=== PATIENT | female | born 1995 | race Caucasian/White ===

== ENCOUNTER → 2019-03-15 13:03 | Outpatient (BNVA) | payer MEDICAID, SELFPAY | PROVIDERS: Family Provider Family Medicine; PCP Family Medicine; Visit Provider Specialist | DX: G40.109 Localization-related (focal) (partial) symptomatic epilepsy and epileptic syndromes with simple partial seizures, not intractable, without status epilepticus (principal); F84.0 Autistic disorder; G80.9 Cerebral palsy, unspecified | CPT/HCPCS: 95972; 99214 ==

== ENCOUNTER → 2019-04-20 10:36 | Outpatient (BNVA) | payer MEDICAID, SELFPAY | PROVIDERS: Family Provider Family Medicine; PCP Family Medicine; Visit Provider Specialist | DX: G40.109 Localization-related (focal) (partial) symptomatic epilepsy and epileptic syndromes with simple partial seizures, not intractable, without status epilepticus (principal) | CPT/HCPCS: 95971; 99214 ==

== ENCOUNTER → 2019-05-11 13:00 | Outpatient (BNVA) | payer MEDICAID, SELFPAY | PROVIDERS: Family Provider Family Medicine; PCP Family Medicine; Visit Provider Specialist | DX: G40.109 Localization-related (focal) (partial) symptomatic epilepsy and epileptic syndromes with simple partial seizures, not intractable, without status epilepticus (principal) | CPT/HCPCS: 95972; 99213 ==

== ENCOUNTER → 2019-07-24 13:12 | Outpatient (BNVA) | payer MEDICAID, SELFPAY | PROVIDERS: Family Provider Family Medicine; PCP Family Medicine; Visit Provider Specialist | DX: G40.109 Localization-related (focal) (partial) symptomatic epilepsy and epileptic syndromes with simple partial seizures, not intractable, without status epilepticus (principal) | CPT/HCPCS: 99214 ==

== ENCOUNTER → 2019-10-05 12:36 | Outpatient (BNVA) | payer MEDICAID, SELFPAY | PROVIDERS: Family Provider Family Medicine; PCP Family Medicine; Visit Provider Specialist | DX: G40.109 Localization-related (focal) (partial) symptomatic epilepsy and epileptic syndromes with simple partial seizures, not intractable, without status epilepticus (principal); G93.41 Metabolic encephalopathy | CPT/HCPCS: 99214 ==

== ENCOUNTER 2019-10-05 13:53 | Outpatient (CLI) | payer MEDICAID, SELFPAY ==
[2019-10-05 14:37] LABS: Basophils % 0.2 %; Eosinophils # 0.1 10^3/uL (0.0-0.8); Eosinophils % 0.6 %; Hematocrit 41.4 % (37.0-47.0); Hemoglobin 12.9 g/dL (11.5-15.3); Lymphocytes # 2.1 10^3/uL (0.8-4.8); Lymphocytes % 23.8 %; Mean Corpuscular HGB Conc 31.2 g/dL (30.0-36.0); Mean Corpuscular Hemoglobin 29.3 pg (28.0-34.0); Mean Corpuscular Volume 93.9 fL (81-99); Mean Platelet Volume 10.4 fL (7.4-10.4); Monocytes # 0.8 10^3/uL (0.2-0.9); Monocytes % 9.1 %; Neutrophils # 5.82 10^3/uL (1.8-7.7); Neutrophils % 66.1 %; Nucleated Red Blood Cells % 0 %; Platelet Count 354 10^3/cmm (130-400); Red Blood Count 4.41 10^6/uL (4.1-5.3); Red Cell Distribution Width 14.9 % (12.1-15.1); White Blood Count 8.8 10^3/uL (4.0-10.0)
[2019-10-05 14:47] LABS: Add Urine Microscopic? YES; Bilirubin Urine Neg (NEGATIVE); Blood Urine 2+ (Negative); Glucose Urine UA Norm (Normal); Ketones Urine Negative (Negative); Leukocyte Esterase Urine 1+ (Negative); Nitrate Urine Negative (Negative); Protein Urine Neg (Negative); Urine Appearance SL Hazy (CLEAR); Urine Color Yellow (Yellow); Urobilinogen Urine Norm (Negative); pH Urine 5 (5-7)
[2019-10-05 14:58] LABS: Mucus Urine 2+
[2019-10-05 14:59] LABS: Bacteria Urine 2+; RBC Urine 0-4 /hpf (0-2)
[2019-10-05 15:00] LABS: Add Urine Culture? Yes
[2019-10-05 15:06] LABS: Alanine Aminotransferase 13 U/L (0-33); Albumin Level 4.3 g/dL (3.5-5.2); Alkaline Phosphatase 75 IU/L (35-105); Anion Gap 11.8 (5-19); Aspartate Amino Transferase 15 U/L (0-32); Blood Urea Nitrogen 10 mg/dL (6-20); Carbon Dioxide 25 mmol/L (22-29); Chloride 105 mmol/L (98-107); Globulin 2.9 g/dL (1.3-4.6); Glomerular Filtration Rate 89.7 mL/min (90-130); Glucose 111 mg/dL (65-115); Osmolality Calculated 283 mOsm/kg (285-295); Potassium 3.8 mmol/L (3.5-5.1); Sodium 138 mmol/L (136-145); Thyroid Stimulating Hormone 1.28 uIU/mL (0.27-4.20); Total Bilirubin 0.2 mg/dL (0.15-1.2); Total Protein 7.2 g/dL (6.6-8.7)
[2019-10-09 19:19] LABS: Lamotrigine (Lamictal) Level 15.2 mcg/mL (4.0-18.0)
== END 2019-10-05 13:54 | disposition home or self-care (01) ==
LOC: LAB 13:55
PROVIDERS: PCP Family Medicine; Visit Provider Specialist
DX: R41.0 Disorientation, unspecified (principal); R26.81 Unsteadiness on feet
CPT/HCPCS: 36415; 80053; 80175; 81001; 84443; 85025; 87077; 87086; 87186

== ENCOUNTER → 2019-11-27 14:55 | Outpatient (BNVA) | payer MEDICAID, SELFPAY | PROVIDERS: PCP Family Medicine; Visit Provider Specialist | DX: G40.109 Localization-related (focal) (partial) symptomatic epilepsy and epileptic syndromes with simple partial seizures, not intractable, without status epilepticus (principal) | CPT/HCPCS: 99214 ==

== ENCOUNTER → 2020-07-10 12:46 | Outpatient (BNVA) | payer MEDICAID, SELFPAY | PROVIDERS: PCP Family Medicine; Visit Provider Specialist | DX: G40.109 Localization-related (focal) (partial) symptomatic epilepsy and epileptic syndromes with simple partial seizures, not intractable, without status epilepticus (principal); F84.0 Autistic disorder; G80.9 Cerebral palsy, unspecified; Z96.82 Presence of neurostimulator | CPT/HCPCS: 95971; 99214 ==

== ENCOUNTER 2022-01-06 07:53 | Day surgery (SDC) | payer MEDICAID, SELFPAY ==
[2022-01-05 13:07] VITALS: BMI 43.9
[2022-01-06] VITALS (9 sets, daily range): BP systolic 94–146; BP diastolic 57–95; PULSE 61–83; RESP 16–18; TEMP 36.1–36.7; O2SAT 94–97
--- NOTE | 2022-01-06 | SC_ITS ---
WS: [id number] INTRAOPERATIVE TECHNIQUE: 2 Spot fluoroscopic images for intraoperative purposes. FLUOROSCOPY TIME: 3.6 seconds CLINICAL INFORMATION: vns generator COMPARISON: None. FINDINGS: Vagal nerve stimulator battery pack overlying the LEFT lateral chest. SC/C-arm FL Misc IMPRESSION: Images obtained for intraoperative purposes.
--- NOTE | 2022-01-06 | SCC_ITS ---
Procedure done: Vagal nerve stimulator generator exchange. 3.6 seconds of fluoroscopic guidance, for a cumulative dose of 0.92 mGy, was provided to Dr. Hernandez by the radiology department. C-arm images of the chest were saved for the patient's permanent record. [facility]
[2022-01-06 08:34] LABS: OR HCG Qualitative Urine Negative (Negative)
[2022-01-06] MEDS: sodium chloride 0.9% 1,000 ML 30 ML IV (08:38)
[2022-01-06 08:47] LABS: Bilirubin Urine Neg (Negative); Blood Urine Trace (Negative); Glucose Urine UA Norm (Normal); Ketones Urine Negative (Negative); Nitrate Urine Negative (Negative); Protein Urine Neg (Negative); Specific Gravity, Urine 1.025 (1.005-1.030); Urine Appearance Clear (CLEAR); Urine Color Yellow (Yellow); Urobilinogen Urine Norm (Negative); pH Urine 6 (5-7)
[2022-01-06 08:48] LABS: Add Urine Culture? No; Add Urine Microscopic? YES; Bacteria Urine 1+ /hpf; Leukocyte Esterase Urine 2+ (Negative); RBC Urine 0-4 /hpf (0-2); Squamous Epithelial Cell Urine 0-4 /hpf (0-5); WBC Urine 0-4 /hpf (0-5)
--- NOTE | 2022-01-06 08:53 | ANES.PREANE2 ---
Pre-Anesthetic Assessment Height/Weight: Height 1.57 m Weight 108.862 kg Temp Pulse Resp BP Pulse Ox O2 Del Method 97.9 F 83 18 146/95 96 01/06/22 08:45 01/06/22 08:45 01/06/22 08:45 01/06/22 08:45 01/06/22 08:45 01/06/22 08:45 Preop Diagnosis: VNS generator end of service Operation Date: 01/06/22 09:40 Proposed Procedures p VNS Generator Exchange 99706,G40.109(Not Applicable) - Ruel Hernandez MD Familial anesthetic complications: None Was Beta Jacque taken within 24 hours: N/A Was Clonidine taken within 24 hours: N/A Last intake: Intake Last Liquid Date 01/05/22 Last Liquid Time 19:00 Last Solid Date 01/05/22 Last Solid Time 17:00 Social No alcohol and No tobacco Exam alert, oriented x 3, clear to auscultation bilaterally and regular rate & rhythm Airway Mallampati: Class III Dentition: other (missing) Metabolic Morbid Obesity Neuropsych Seizure Cerebral palsy, temporal lobe epilepsy Anesthetic Plan ASA status: 4 Anesthesia: MAC Risk of > 500 ml blood loss (7ml/kg in children): No Medications/Allergies Home Medications Medication Instructions Recorded Confirmed Last Taken Type guanfacine 1 mg tablet 1 mg PO QDAY 03/15/19 01/06/22 01/05/22 History sertraline 25 mg tablet 25 mg PO QDAY 03/15/19 01/06/22 01/06/22 07:00 History lacosamide 150 mg tablet (Vimpat) 150 mg PO BID #60 tabs 07/10/20 01/06/22 01/06/22 07:00 Rx lamotrigine 200 mg tablet See Rx Instructions .Route 12/30/20 01/06/22 01/06/22 07:00 Rx .COMPLEX #105 tabs perampanel 6 mg tablet (Fycompa) 12 mg PO DAILY #60 tabs 07/28/21 01/06/22 01/05/22 Rx cenobamate 150 mg tablet (Xcopri) 200 mg PO 1XD 01/05/22 01/06/22 01/06/22 07:00 History eslicarbazepine 400 mg tablet 400 mg PO 1XD 01/05/22 01/06/22 01/05/22 History (Aptiom) Allergies Allergy/AdvReac Type Severity Reaction Status Date / Time felbamate [From Felbatol] Allergy nausea, Verified 01/06/22 08:22 mood change Current Medications Generic Name Dose Route Start Last Admin Trade Name Jaydenq PRN Reason Stop Dose Admin Sodium Chloride 1,000 mls @ 30 mls/hr 01/06/22 08:15 01/06/22 08:38 Sodium Chloride 0.9% IV 01/07/22 08:14 30 mls/hr .Q24H JONG Administration PFSH Anesthesia Surgical History Status post VNS (vagus nerve stimulator) placement Family History Other Diabetes Denies family history of CAD (coronary artery disease) Stroke Social History Smoking and tobacco status: never smoked Alcohol intake: never History of recent travel: No Data Anesthesia Urine 01/06/22 Range/Units 08:20 Urine Color Yellow (Yellow) Urine Appearance Clear (CLEAR) Urine pH 6 (5-7) Ur Specific [place] 1.025 (1.005-1.030) Urine Protein Neg (Negative) Urine Glucose (UA) Norm (Normal) Urine Ketones Negative (Negative) Urine Nitrate Negative (Negative) Urine Bilirubin Neg (Negative) Ur Leukocyte Esterase 2+ H (Negative) Urine RBC 0-4 H (0-2) /hpf Urine WBC 0-4 H (0-5) /hpf Cardiac Studies: No Data to Display
[2022-01-06 09:00] LABS: Basophils % 0.6 %; Eosinophils # 0.1 10^3/uL (0.0-0.8); Hematocrit 41.2 % (37.0-47.0); Hemoglobin 12.8 g/dL (11.5-15.3); Lymphocytes % 28.7 %; Mean Corpuscular HGB Conc 31.1 g/dL (30.0-36.0); Mean Corpuscular Hemoglobin 29.5 pg (28.0-34.0); Mean Corpuscular Volume 94.9 fl (81-99); Mean Platelet Volume 10.4 fL (7.4-10.4); Monocytes # 0.6 10^3/uL (0.2-0.9); Monocytes % 9.2 %; Neutrophils # 4.11 10^3/uL (1.8-7.7); Neutrophils % 59.9 %; Nucleated Red Blood Cells % 0 %; Platelet Count 303 10^3/cmm (130-400); Red Blood Count 4.34 10^6/uL (4.1-5.3); Red Cell Distribution Width 15.7 % (12.1-15.1); White Blood Count 6.9 10^3/uL (4.0-10.0)
--- NOTE | 2022-01-06 09:17 | XR_ITS ---
WS: [id number] Exam: XR chest 1V portable [id number] Date/Time of Exam: 01/06/2022 9:32 AM Reason For Exam: post op cabg No previous exams. The lungs are clear. Unremarkable cardiomediastinal silhouette for technique. Decreased lung volumes secondary to limited inspiration. Regional bony structures are unremarkable. A battery pack superimpo ses the upper left abdomen. XR/XR chest 1V portable [id number] IMPRESSION: 1. Low lung volumes due to Limited inspiration. No acute cardiopulmonary findin g.
[2022-01-06 09:55] LABS: Blood Urea Nitrogen 13 mg/dL (6-20); Calcium 9.5 mg/dL (8.5-10.5); Carbon Dioxide 29 mmol/L (22-29); Chloride 99 mmol/L (98-107); Glomerular Filtration Rate 88.1 mL/min (90-130); Glucose 87 mg/dL (65-115); Osmolality Calculated 283 mOsm/kg (285-295); Sodium 137 mmol/L (136-145)
--- NOTE | 2022-01-06 10:01 | W.PM.OPSFHP ---
Same Day Surgery H&P Indication for Procedure/HPI DATE OF PROCEDURE: January 06, 2022 CHIEF COMPLAINT/INDICATIONFOR SURGICAL PROCEDURE: VNS generator end of service PREOP DIAGNOSIS: VNS generator end of service PLANNED PROCEDURE: Operation Date: 01/06/22 09:40 Proposed Procedures p VNS Generator Exchange [id number],G40.109(Not Applicable) - Ruel Hernandez MD Ms. Anne is a 26-year-old autistic female with refractory triple lobe epilepsy and moderate obesity. She has had venous generator implantation and replacement x1. Her current generator is now at end of service. She is followed closely by Dr. Michaels. Generator replacement is requested. ROS Denies fever, chills, chest pain, shortness of breath. Last reported seizure approximately 2 weeks ago. Medications/Allergies* Home Medications Medication Instructions Recorded Confirmed Type guanfacine 1 mg tablet 1 mg PO QDAY 03/15/19 01/06/22 History sertraline 25 mg tablet 25 mg PO QDAY 03/15/19 01/06/22 History cenobamate 150 mg tablet (Xcopri) 200 mg PO 1XD 01/05/22 01/06/22 History eslicarbazepine 400 mg tablet 400 mg PO 1XD 01/05/22 01/06/22 History (Aptiom) Allergies/Adverse Reactions Allergy/AdvReac Type Severity Reaction Status Date / Time felbamate [From Felbatol] Allergy nausea, Verified 01/06/22 08:22 mood change Current Medications: Generic Name Dose Route Start Last Admin Trade Name Freq PRN Reason Stop Dose Admin Sodium Chloride 1,000 mls @ 30 mls/hr 01/06/22 08:15 01/06/22 08:38 Sodium Chloride 0.9% IV 01/07/22 08:14 30 mls/hr .Q24H JONG Administration Pertinent History/Comorbid Conditions* Surgical History (Updated 07/24/19 @ 17:36 by Destiney Michaels MD) Status post VNS (vagus nerve stimulator) placement Family History (Updated 03/15/19 @ 13:31 by Solitario Thomaosn) Diabetes Denies family history of CAD (coronary artery disease) Stroke Social History Smoking and tobacco status: never smoked Alcohol intake: never History of recent travel: No Pertinent Exam Findings alert, clear to auscultation bilaterally, regular rate & rhythm and operative site marked Chest x-ray and chest exam reveals generator is low on the left side. Lungs are clear to auscultation. Cardiovascular exam reveals regular rate and rhythm without murmur, gallop, or rub. Abdominal exam reveals soft, nondistended with normoactive bowel sounds. No direct or rebound tenderness. No clubbing cyanosis or edema of the lower extremities. Pertinent Data Chest x-ray reveals clear lung brito with normal cardiac silhouette. Recommendations Surgery/Procedure today Other Plans: We have corporate travel counselor with family members. Recommendations for VNS generator exchange was carefully discussed and they state understanding and wished to proceed. Appropriate consents have been reviewed and signed. Coding Level of Care Code Acute Drug Abuse Technician for Medardo Steen
--- NOTE | 2022-01-06 10:06 | SC_ITS ---
WS: [id number] INTRAOPERATIVE TECHNIQUE: 2 Spot fluoroscopic images for intraoperative purposes. FLUOROSCOPY TIME: 3.6 seconds CLINICAL INFORMATION: vns generator COMPARISON: None. FINDINGS: Vagal nerve stimulator battery pack overlying the LEFT lateral chest.
[2022-01-06] MEDS: ceFAZolin 2,000 MG in sodium chloride 0.9% (plus) 50 ML 100 MG IV (10:24)
[2022-01-06] MEDS: ceFAZolin 1,000 mg SDV 1000 MG IRRIGATION (10:25)
[2022-01-06] MEDS: lidocaine 1% INJ 20 mL 7 ML XX (10:26)
--- NOTE | 2022-01-06 11:09 | PM.OP ---
Operative Report Date of procedure: January 06, 2022 Pre-op diagnosis: Preop Diagnosis VNS generator end of service Post-op diagnosis: same Procedure done: Vagal nerve stimulator generator exchange Implants: Vagal nerve stimulator Specimens removed/disposition: Old vagal nerve stimulator Pathology: none sent Surgeon: Ruel Hernandez Anesthesia: MAC and Local Complications: None Condition: stable Disposition: same day Brief History: Ms. Anne is a 26-year-old female with autism and seizure disorder who presents upon referral from Dr. Michaels with current VNS generator at end of service. She has had original implantation and 1 replacement, this would be her second generator replacement. Consultation with family was completed and appropriate consents were reviewed and signed. Procedure: The patient was taken to the operating room theater and Positioned on the OR table over protective padding. She underwent IV conscious sedation with anesthesia monitoring. Her entire left chest was sterilely prepped and draped. Appropriate timeout was completed and confirmed. 1% lidocaine was infiltrated at the area of the prior incision near the anterior axillary line for device implantation. #15 scalpel blade was utilized to incise the skin down to the subcutaneous tissues. Careful dissection was then performed utilizing scalpel, Metzenbaum scissors, and cautery if required to reach the pseudocapsule. Care was taken to identify the course of the VNS wire. The pseudocapsule was then opened utilizing #15 scalpel blade exposing the generator which was subsequently delivered. Antibiotic soaked gauze was placed in the wound. Setscrew was released to remove the VNS wire and the old generator was removed from the field. The new generator was then connected to the VNS wire and the setscrew was secured with good contact confirmed with axial traction. Wound was carefully irrigated with antibiotic solution. Hemostasis confirmed. The device was then placed back into the pseudocapsule pocket. On the table interrogation was then performed with appropriate parameters confirmed. Once completed, the incision was then closed with 2 layers of 3-0 Vicryl suture. Skin was reapproximated in a subcuticular manner with 4-0 Monocryl suture. Dermal glue was then applied followed by sterile dressing and pressure dressing. Procedure was well-tolerated and patient was awakened from IV conscious sedation and then transferred to Outpatient Surgery department in stable condition. Model: Sentiva #1000 Serial #: [id number] Frequency 20 Hz on time: 30 seconds off time: 0.8 minutes duty: 44% lead impedance 2416 ohms
[2022-01-06] MEDS: HYDROcodone-acetaminophen 5-325 mg Tablet 1 TAB PO (11:41)
--- NOTE | 2022-01-06 16:24 | ANE.PACU2 ---
Inpatient post-anesthesia follow up: Airway intact: Yes Vital signs: Temperature 98.1 F Pulse Rate 72 Respiratory Rate 18 Blood Pressure 111/74 Pulse Oximetry 97 Oxygen Delivery Me thod Room Air Oxygen Flow Rate Fraction of Inspir ed Oxygen Hydration adequate: Yes Nausea and vomiting: No Pain level: 1 Mental status: Baseline
== END 2022-01-06 12:11 | disposition home or self-care (01) ==
PROVIDERS: PCP Family Medicine; Visit Provider Thoracic Surgery (Cardiothoracic Vascular Surgery)
PROC: (CPT 61885; principal; 2022-01-06 09:30)
DX: Z45.42 Encounter for adjustment and management of neurostimulator (principal); E66.01 Morbid (severe) obesity due to excess calories; Z68.41 Body mass index [BMI] 40.0-44.9, adult
CPT/HCPCS: 61885; 36415; 71045; 76000; 80048; 81001; 81025; 84703; 85025; C1767; J0690; J2704; J3010; J7030

== ENCOUNTER → 2022-01-20 10:39 | Outpatient (BNVA) | payer MEDICAID, SELFPAY | PROVIDERS: PCP Family Medicine; Visit Provider Nurse Practitioner Family | DX: G40.909 Epilepsy, unspecified, not intractable, without status epilepticus (principal); Z48.812 Encounter for surgical aftercare following surgery on the circulatory system | CPT/HCPCS: 99212 ==